=== PATIENT | male | born 1990 | race Caucasian/White ===

== ENCOUNTER 2017-09-18 03:09 | Emergency (ER) | payer BC, OTHER ==
--- NOTE | 2017-09-18 03:58 | EDPHYS ---
Physician Documentation [facility] Name: Mikhail Mcfarlane III Age: 27 yrs Sex: Male : 1990 Arrival Date: 09/18/2017 Time: 03:10 Bed 13 Private MD: ED Physician Mukul Elena HPI: 09/18 03:38 This 27 yrs old Male presents to ER via Ambulatory with complaints of Arm sangeeta Pain - R. 03:38 The patient or guardian complains of decreased range of motion, pain. The complaints sangeeta affect the anterior aspect of right shoulder and posterior aspect of right shoulder. Context: The problem was sustained at home. Onset: The symptoms/episode began/occurred 2 day(s) ago. Treatment prior to arrival includes: no previous treatment. Modifying factors: The symptoms are alleviated by remaining still, the symptoms are aggravated by movement, lifting weight. Associated signs and symptoms: The patient has no apparent associated signs or symptoms. Severity of symptoms: At their worst the symptoms were mild, moderate, in the emergency department the symptoms are unchanged. The patient has not experienced similar symptoms in the past. Historical: - Allergies: 03:23 No Known Allergies; tl1 - Home Meds: 03:23 None [Active]; tl1 - PMHx: 03:23 None; tl1 - PSHx: 03:23 rhinoplasty; tl1 - Immunization history:: Adult Immunizations up to date. - Social history:: Smoking status: Patient/guardian denies using tobacco, the patient reports quitting approximately 2 years ago, Patient uses alcohol, occasionally. - Family history:: not pertinent. ROS: 03:38 Constitutional: Negative for fever, chills, and weight loss, Eyes: Negative for injury, sangeeta pain, redness, and discharge, ENT: Negative for injury, pain, and discharge, Neck: Negative for injury, pain, and swelling, Cardiovascular: Negative for chest pain, palpitations, and edema, Respiratory: Negative for shortness of breath, cough, wheezing, and pleuritic chest pain, Abdomen/GI: Negative for abdominal pain, nausea, vomiting, diarrhea, and constipation, Back: Negative for injury and pain, : Negative for injury, bleeding, discharge, and swelling, Skin: Negative for injury, rash, and discoloration, Neuro: Negative for headache, weakness, numbness, tingling, and seizure, Psych: Negative for depression, anxiety, suicide ideation, homicidal ideation, and hallucinations, Allergy/Immunology: Negative for hives, rash, and allergies, Endocrine: Negative for neck swelling, polydipsia, polyuria, polyphagia, and marked weight changes, Hematologic/Lymphatic: Negative for swollen nodes, abnormal bleeding, and unusual bruising. 03:38 MS/extremity: Positive for decreased range of motion, pain, tenderness, of the anterior aspect of right shoulder and posterior aspect of right shoulder. Exam: 03:38 Constitutional: This is a well developed, well nourished patient who is awake, alert, sangeeta and in no acute distress. Head/Face: Normocephalic, atraumatic. Eyes: Pupils equal round and reactive to light, extra-ocular motions intact. Lids and lashes normal. Conjunctiva and sclera are non-icteric and not injected. Cornea within normal limits. Periorbital areas with no swelling, redness, or edema. ENT: Nares patent. No nasal discharge, no septal abnormalities noted. Tympanic membranes are normal and external auditory canals are clear. Oropharynx with no redness, swelling, or masses, exudates, or evidence of obstruction, uvula midline. Mucous membranes moist. Neck: Trachea midline, no thyromegaly or masses palpated, and no cervical lymphadenopathy. Supple, full range of motion without nuchal rigidity, or vertebral point tenderness. No Meningismus. Chest/axilla: Normal chest wall appearance and motion. Nontender with no deformity. No lesions are appreciated. Cardiovascular: Regular rate and rhythm with a normal S1 and S2. No gallops, murmurs, or rubs. Normal PMI, no JVD. No pulse deficits. Respiratory: Lungs have equal breath sounds bilaterally, clear to auscultation and percussion. No rales, rhonchi or wheezes noted. No increased work of breathing, no retractions or nasal flaring. Abdomen/GI: Soft, non-tender, with normal bowel sounds. No distension or tympany. No guarding or rebound. No evidence of tenderness throughout. Back: No spinal tenderness. No costovertebral tenderness. Full range of motion. Male : Normal genitalia with no discharge or lesions. Skin: Warm, dry with normal turgor. Normal color with no rashes, no lesions, and no evidence of cellulitis. Neuro: Awake and alert, GCS 15, oriented to person, place, time, and situation. Cranial nerves II-XII grossly intact. Motor strength 5/5 in all extremities. Sensory grossly intact. Cerebellar exam normal. Normal gait. Psych: Awake, alert, with orientation to person, place and time. Behavior, mood, and affect are within normal limits. 03:38 Musculoskeletal/extremity: Extremities: noted in the anterior aspect of right shoulder and posterior aspect of right shoulder: decreased ROM, pain. Vital Signs: 03:21 BP 142 / 94; Pulse 79; Resp 16; Temp 98.4; Pulse Ox 100% ; Weight 113.4 kg; Height 5 tl1 ft. 11 in. (180.34 cm); Pain 8/10; 03:21 Body Mass Index 34.87 (113.40 kg, 180.34 cm) tl1 MDM: 03:37 Patient medically screened. [facility] 03:40 Data reviewed: vital signs, nurses notes, radiologic studies, plain films. [facility] 09/18 03:38 Order name: Shoulder Right (2 View) XRAY [facility] 09/18 03:38 Order name: Sling; Complete Time: 03:50 [facility] 09/18 03:38 Order name: Ice pack; Complete Time: 03:50 [facility] Administered Medications: 03:50 Drug: Motrin 600 mg Route: PO; bs1 04:09 Follow up: Response: Pain is unchanged, physician notified bs1 04:09 Drug: [place] 10 mg-325 mg 1 tabs Route: PO; bs1 04:10 Follow up: Response: No adverse reaction bs1 Disposition: 09/18/17 03:58 Discharged to Home. Impression: Strain of muscle(s) and tendon(s) of the rotator cuff of right shoulder. - Condition is Stable. - Discharge Instructions: Shoulder Pain, Shoulder Pain, [id number], Shoulder Sprain. - Prescriptions for Ibuprofen 600 mg Oral Tablet - take 1 tablet by ORAL route every 8 hours As needed take with food; 21 tablet. Tylenol- Codeine #3 300-30 mg Oral Tablet - take 2 tablets by ORAL route every 6 hours As needed; 26 tablet. - Medication Reconciliation Form, Thank You Letter, Antibiotic Education, Prescription Opioid Use form. - Follow up: Private Physician; When: 2 - 3 days; Reason: Recheck today's complaints, Continuance of care, Re-evaluation by your physician. Follow up: Dr. Duong Monique; When: 2 - 3 days; Reason: Recheck today's complaints, Re-evaluation by your physician. - Problem is new. - Symptoms have improved. Signatures: Dispatcher [employer] Mukul Monreal, Chelita Cortes MD, cha, RN RN tl1 Jaki Nazario RN RN bs1
--- NOTE | 2017-09-18 03:58 | ER ---
Nurse's Notes [facility] Name: Mikhail Mcfarlane III Age: 27 yrs Sex: Male : 1990 Arrival Date: 09/18/2017 Time: 03:10 Bed 13 Private MD: Diagnosis: Strain of muscle(s) and tendon(s) of the rotator cuff of right shoulder Presentation: 09/18 03:20 Presenting complaint: Patient states: I just started working out yesterday and at about tl1 midnight my right arm started hurting. I hurts in my shoulder and down my upper arm. Transition of care: patient was not received from another setting of care. Onset of symptoms was September 18, 2017. Care prior to arrival: None. 03:20 Method Of Arrival: Ambulatory tl1 03:20 Acuity: LEONARDO 4 tl1 Historical: - Allergies: 03:23 No Known Allergies; tl1 - Home Meds: 03:23 None [Active]; tl1 - PMHx: 03:23 None; tl1 - PSHx: 03:23 rhinoplasty; tl1 - Immunization history:: Adult Immunizations up to date. - Social history:: Smoking status: Patient/guardian denies using tobacco, the patient reports quitting approximately 2 years ago, Patient uses alcohol, occasionally. - Family history:: not pertinent. Screenin:52 Abuse screen: Denies threats or abuse. Denies injuries from another. Nutritional bs1 screening: No deficits noted. Tuberculosis screening: No symptoms or risk factors identified. Fall Risk None identified. Assessment: 03:50 General: Appears in no apparent distress. uncomfortable, Behavior is cooperative, bs1 appropriate for age. Pain: Complains of pain in right arm, right shoulder. Neuro: No deficits noted. Level of Consciousness is awake, alert, obeys commands, Oriented to person, place, time, situation, Appropriate for age Cooler Conveyor Loader are equal bilaterally Moves all extremities. Cardiovascular: Heart tones S1 S2 present Capillary refill < 3 seconds Patient's skin is warm and dry. Respiratory: Airway is patent Trachea midline Respiratory effort is even, unlabored, Respiratory pattern is regular, symmetrical, Breath sounds are clear bilaterally. GI: No deficits noted. No signs and/or symptoms were reported involving the gastrointestinal system. : No deficits noted. No signs and/or symptoms were reported regarding the genitourinary system. EENT: No deficits noted. No signs and/or symptoms were reported regarding the EENT system. Derm: No deficits noted. No signs and/or symptoms reported regarding the dermatologic system. Musculoskeletal: Circulation, motion, and sensation intact. Capillary refill < 3 seconds, Range of motion: limited in right arm. Vital Signs: 03:21 BP 142 / 94; Pulse 79; Resp 16; Temp 98.4; Pulse Ox 100% ; Weight 113.4 kg; Height 5 tl1 ft. 11 in. (180.34 cm); Pain 8/10; 03:21 Body Mass Index 34.87 (113.40 kg, 180.34 cm) tl1 ED Course: 03:10 Patient arrived in ED. ds1 03:21 Triage completed. tl1 03:23 Arm band placed on right wrist. tl1 03:37 Mukul Elena MD is Attending Physician. sangeeta 03:45 Sling applied to right arm. bs1 03:50 Jaki Nazario RN is Primary Nurse. bs1 03:51 X-ray completed. Portable x-ray completed in exam room. Patient tolerated procedure kw well. 03:52 Patient has correct armband on for positive identification. Bed in low position. Call bs1 light in reach. Side rails up X 1. 03:58 Duong Monique MD is Referral Physician. sangeeta 04:10 No provider procedures requiring assistance completed. Patient did not have IV access bs1 during this emergency room visit. Administered Medications: 03:50 Drug: Motrin 600 mg Route: PO; bs1 04:09 Follow up: Response: Pain is unchanged, physician notified bs1 04:09 Drug: [place] 10 mg-325 mg 1 tabs Route: PO; bs1 04:10 Follow up: Response: No adverse reaction bs1 Outcome: 03:58 Discharge ordered by . sangeeta 04:10 Discharged to home ambulatory, with sling/Ice pack bs1 04:10 Condition: stable 04:10 Discharge instructions given to patient, Instructed on discharge instructions, follow up and referral plans. medication usage, Demonstrated understanding of instructions, follow-up care, medications, Prescriptions given X 2. 04:12 Patient left the ED. bs1 Signatures: Mukul Elena MD MD cha Sanford, Demi ds1 Bruna Sanders Tonya, RN RN tl1 Jaki Nazario, RN RN bs1
[2017-09-18] MEDS ORDERED: IBUPROFEN 200 MG TAB PO ONE (04:02)
[2017-09-18] MEDS ORDERED: HYDROCODONE/APAP 10/325 TAB ONE (04:27)
--- NOTE | 2017-09-18 09:35 | RAD REPORT ---
EXAM DESCRIPTION: RAD - Shoulder Right 2 View - 09/18/2017 3:53 am CLINICAL HISTORY: Right shoulder pain FINDINGS: No fracture or dislocation is seen. No bone or joint abnormality is seen
== END 2017-09-18 04:12 | disposition home or self-care (01) ==
LOC: ER 03:09
DX: S46.011A Strain of muscle(s) and tendon(s) of the rotator cuff of right shoulder, initial encounter (principal); X50.0XXA Overexertion from strenuous movement or load, initial encounter; Y92.009 Unspecified place in unspecified non-institutional (private) residence as the place of occurrence of the external cause; Z87.891 Personal history of nicotine dependence
CPT/HCPCS: 99283

== ENCOUNTER 2017-09-28 17:17 | Emergency (ER) | payer OTHER ==
[2017-09-28 17:55] LABS: Absolute Lymphocytes (CBC) 2.5 K/uL (0.7-4.9); Absolute Monocytes 0.9 K/uL (0.1-1.3); Absolute Neutrophil 6.2 K/uL (1.8-8.0); Basophils % 0.6 % (0-1.3); Hematocrit 44.6 % (39.6-49.0); Lymphocytes % 25.2 % (15.3-44.8); MCH 29.9 pg (27.0-35.0); MCV 88.6 fL (80-100); RBC Red Blood Cell Count 5.03 M/uL (4.33-5.43)
[2017-09-28 18:00] LABS: Bicarbonate 29 mEq/L (21-31); Glucose Level 111 mg/dL (65-120); Potassium 4.2 mEq/L (3.6-5.0); Sodium Level 140 mEq/L (135-145)
[2017-09-28 18:01] LABS: BUN Blood Urea Nitrogen 17 mg/dL (6-20)
--- NOTE | 2017-09-28 18:11 | RAD REPORT ---
EXAM DESCRIPTION: RAD - Chest Single View - 09/28/2017 6:04 pm CLINICAL HISTORY: Chest pain. COMPARISON: 11/17/2010 FINDINGS: Portable technique limits examination quality. The lungs are grossly clear. The heart is normal in size. No displaced fractures. IMPRESSION: No acute intrathoracic process suspected.
--- NOTE | 2017-09-28 18:20 | EDPHYS ---
Physician Documentation [facility] Name: Mikhail Mcfarlane III Age: 27 yrs Sex: Male : 1990 Arrival Date: 09/28/2017 Time: 17:20 Bed 13 Private MD: Blaze Alba ED Physician Richard Smith HPI: 09/28 18:14 This 27 yrs old Male presents to ER via Ambulatory with complaints of pm1 Palpitations. 18:14 The patient presents with a history of heart racing. Context: The symptoms occur at pm1 rest, while eating breakfast. Onset: The symptoms/episode began/occurred yesterday. Duration: The patient or guardian reports a single episode, that is now resolved, that lasted 30 minute(s). Modifying factors: The symptoms are aggravated by nothing. The symptoms are alleviated by nothing. Associated signs and symptoms: Pertinent negatives: chest pain, lightheadedness, nausea, SOB, vomiting, Dizziness. Severity of symptoms: in the emergency department the symptoms have resolved Pain is currently a 0 / 10. The patient has not experienced similar symptoms in the past. Patient reports that he had a night of drinking alcohol prior to the morning that he had palpitations. Historical: - Allergies: 17:24 No Known Allergies; la1 - PMHx: 17:24 None; la1 - Immunization history:: Adult Immunizations up to date. - Social history:: Smoking status: Patient uses tobacco products. ROS: 18:15 Constitutional: Negative for fever, chills, and weight loss, Eyes: Negative for injury, pm1 pain, redness, and discharge, ENT: Negative for injury, pain, and discharge, Neck: Negative for injury, pain, and swelling. 18:15 Respiratory: Negative for shortness of breath, cough, wheezing, and pleuritic chest pain, Abdomen/GI: Negative for abdominal pain, nausea, vomiting, diarrhea, and constipation, Back: Negative for injury and pain, : Negative for injury, bleeding, discharge, and swelling, MS/Extremity: Negative for injury and deformity, Skin: Negative for injury, rash, and discoloration. 18:15 Cardiovascular: Positive for palpitations, Negative for chest pain, edema, orthopnea. 18:15 Neuro: Positive for leg weakness when he felt palpitations, Negative for dizziness, headache, loss of consciousness, numbness, syncope, near syncope, tingling. 18:15 Psych: Positive for anxiety. Exam: 18:15 Constitutional: This is a well developed, well nourished patient who is awake, alert, pm1 and in no acute distress. Head/Face: Normocephalic, atraumatic. Eyes: Pupils equal round and reactive to light, extra-ocular motions intact. Lids and lashes normal. Conjunctiva and sclera are non-icteric and not injected. Cornea within normal limits. Periorbital areas with no swelling, redness, or edema. ENT: Nares patent. No nasal discharge, no septal abnormalities noted. Tympanic membranes are normal and external auditory canals are clear. Oropharynx with no redness, swelling, or masses, exudates, or evidence of obstruction, uvula midline. Mucous membranes moist. Neck: Trachea midline, no thyromegaly or masses palpated, and no cervical lymphadenopathy. Supple, full range of motion without nuchal rigidity, or vertebral point tenderness. No Meningismus. Chest/axilla: Normal chest wall appearance and motion. Nontender with no deformity. No lesions are appreciated. Cardiovascular: Regular rate and rhythm with a normal S1 and S2. No gallops, murmurs, or rubs. Normal PMI, no JVD. No pulse deficits. Respiratory: Lungs have equal breath sounds bilaterally, clear to auscultation and percussion. No rales, rhonchi or wheezes noted. No increased work of breathing, no retractions or nasal flaring. Abdomen/GI: Soft, non-tender, with normal bowel sounds. No distension or tympany. No guarding or rebound. No evidence of tenderness throughout. Back: No spinal tenderness. No costovertebral tenderness. Full range of motion. Skin: Warm, dry with normal turgor. Normal color with no rashes, no lesions, and no evidence of cellulitis. MS/ Extremity: Pulses equal, no cyanosis. Neurovascular intact. Full, normal range of motion. 18:15 Neuro: Orientation: is normal, Mentation: is normal, Motor: is normal, moves all fours, strength is normal, Gait: is steady, at a normal pace, without difficulty. Vital Signs: 17:24 BP 142 / 91; Pulse 92; Resp 16; Temp 97.1; Pulse Ox 100% on R/A; Weight 113.4 kg; la1 Height 5 ft. 11 in. (180.34 cm); 18:08 BP 131 / 82; Pulse 84; Resp 16; Pulse Ox 96% on R/A; Pain 0/10; em 17:24 Body Mass Index 34.87 (113.40 kg, 180.34 cm) la1 MDM: 17:27 Patient medically screened. pm1 18:18 Data reviewed: vital signs. Data interpreted: Pulse oximetry: on room air is 100 %. pm1 Interpretation: normal. Counseling: I had a detailed discussion with the patient and/or guardian regarding: the historical points, exam findings, and any diagnostic results supporting the discharge/admit diagnosis, lab results, radiology results, the need for outpatient follow up, to return to the emergency department if symptoms worsen or persist or if there are any questions or concerns that arise at home. 09/28 17:34 Order name: CBC with Diff; Complete Time: 17:59 pm1 09/28 17:34 Order name: BMP; Complete Time: 18:03 pm1 09/28 17:34 Order name: EKG; Complete Time: 17:34 pm1 09/28 17:34 Order name: EKG - Nurse/Tech; Complete Time: 17:46 pm1 09/28 17:34 Order name: Chest Single View XRAY; Complete Time: 18:14 pm1 09/28 17:50 Order name: IV Saline Lock; Complete Time: 17:52 pm1 Administered Medications: No medications were administered Disposition: 09/28/17 18:19 Discharged to Home. Impression: Palpitations. - Condition is Stable. - Discharge Instructions: Palpitations. - Medication Reconciliation Form, Thank You Letter form. - Follow up: Emergency Department; When: As needed; Reason: Worsening of condition. Follow up: Blaze Alba MD; When: 2 - 3 days; Reason: Recheck today's complaints, Continuance of care, Re-evaluation by your physician. Follow up: Chip Moe MD; When: 2 - 3 days; Reason: Recheck today's complaints, Continuance of care, Re-evaluation by your physician. - Problem is new. - Symptoms are resolved. Addendum: 09/30/2017 07:26 Co-signature as Attending Physician, Richard Smith MD. g s Signatures: Dispatcher [employer] Damion Mata, COMMUNITY SERVICE AIDE COMMUNITY SERVICE AIDE Xavier Haywood, RN RN la1 Paul Bhardwaj, SAS ANALYST SAS ANALYST pm1 Richard Smith MD MD
--- NOTE | 2017-09-28 18:20 | ER ---
Nurse's Notes [facility] Name: Mikhail Mcfarlane III Age: 27 yrs Sex: Male : 1990 Arrival Date: 09/28/2017 Time: 17:20 Bed 13 Private MD: Blaze Alba Diagnosis: Palpitations Presentation: 09/28 17:22 Presenting complaint: Patient states: Yesterday morning I felt like my heart was la1 racing, my legs felt weak and it lasted for about thirty minutes. Right now I am anxious about it and want to get checked out. Transition of care: patient was not received from another setting of care. Onset of symptoms was September 28, 2017. Care prior to arrival: None. 17:22 Method Of Arrival: Ambulatory la1 17:22 Acuity: LEONARDO 3 la1 Historical: - Allergies: 17:24 No Known Allergies; la1 - PMHx: 17:24 None; la1 - Immunization history:: Adult Immunizations up to date. - Social history:: Smoking status: Patient uses tobacco products. Screenin:46 Abuse screen: Denies threats or abuse. Nutritional screening: No deficits noted. em Tuberculosis screening: No symptoms or risk factors identified. Fall Risk None identified. Assessment: 17:35 General: Appears in no apparent distress. comfortable, Behavior is calm, cooperative. em Pain: Denies pain. Neuro: Level of Consciousness is awake, alert, Oriented to person, place, time, situation, Denies weakness dizziness, numbness headache. Cardiovascular: Reports palpitations, since had a 30 minute episode of palpitations yesterday morning and has been concerned ever since Denies chest pain, Heart tones S1 S2 present Capillary refill < 3 seconds Patient's skin is warm and dry. Rhythm is regular. Respiratory: Airway is patent Respiratory effort is even, unlabored, Respiratory pattern is regular, symmetrical, Breath sounds are clear bilaterally. GI: Abdomen is round. : No signs and/or symptoms were reported regarding the genitourinary system. EENT: No signs and/or symptoms were reported regarding the EENT system. Derm: Skin is intact, Skin is pink, warm \T\ dry. Musculoskeletal: Range of motion: intact in all extremities. 17:59 Reassessment: Patient appears in no apparent distress at this time. I agree with above iw assessment by Damion Freitas LVN. 18:18 Reassessment: Patient appears in no apparent distress at this time. Patient is alert, em oriented x 3, equal unlabored respirations, skin warm/dry/pink. Patient states feeling better. Patient states symptoms have improved. Vital Signs: 17:24 BP 142 / 91; Pulse 92; Resp 16; Temp 97.1; Pulse Ox 100% on R/A; Weight 113.4 kg; la1 Height 5 ft. 11 in. (180.34 cm); 18:08 BP 131 / 82; Pulse 84; Resp 16; Pulse Ox 96% on R/A; Pain 0/10; em 17:24 Body Mass Index 34.87 (113.40 kg, 180.34 cm) la1 ED Course: 17:20 Patient arrived in ED. mr 17:20 Blaze Alba MD is Private Physician. mr 17:24 Triage completed. la1 17:24 Arm band placed on left wrist. la1 17:26 Paul Bhardwaj NP is PHCP. pm1 17:26 Richard Smith MD is Attending Physician. pm1 17:28 Damion Freitas LVN is Primary Nurse. em 17:46 Patient has correct armband on for positive identification. Bed in low position. Call em light in reach. Side rails up X2. 17:46 No provider procedures requiring assistance completed. Initial lab(s) drawn, by me, em sent to lab. Inserted saline lock: 20 gauge in right antecubital area, using aseptic technique. Blood collected. 18:03 X-ray completed. Portable x-ray completed in exam room. Patient tolerated procedure la2 well. 18:04 Chest Single View XRAY In Process Unspecified. EDMS 18:19 Blaze Alba MD is Referral Physician. pm1 18:20 Chip Moe MD is Referral Physician. pm1 18:35 IV discontinued, intact, bleeding controlled, No redness/swelling at site. Pressure em dressing applied. Administered Medications: No medications were administered Outcome: 18:19 Discharge ordered by . pm1 18:35 Discharged to home ambulatory. em 18:35 Condition: good 18:35 Discharge instructions given to patient, Instructed on discharge instructions, follow up and referral plans. Demonstrated understanding of instructions, follow-up care. 18:35 Patient left the ED. em Signatures: Dispatcher [employer] ED Mynor Nicolasa mr Fortino, Damion, LUMBER PILER OPERATOR LUMBER PILER OPERATOR em Shruti Mathias RN RN iw Xavier Joyner RN RN la1 Paul Bhardwaj, [facility] [employer] [employer] pm1 Lo Diez2 Corrections: (The following items were deleted from the chart) 17:50 17:35 Neuro: Level of Consciousness is awake, alert, Oriented to person, place, time, em situation, em
--- NOTE | 2017-09-29 12:45 | EKG ---
Test Date: 2017-09-28 Test Time: 17:38:42 Pinion And Wheel Truer: EMT MEASUREMENT RESULTS: Intervals: Rate: 81 IA: 156 QRSD: 90 QT: 350 QTc: 406 [place]: P: 49 IA: 156 QRS: 22 T: 46 INTERPRETIVE STATEMENTS: Normal sinus rhythm Normal ECG No previous ECG available for comparison Electronically Signed On 09-29-17 12:44:22 CDT by Vasiliy Briceno
== END 2017-09-28 18:35 | disposition home or self-care (01) ==
LOC: ER 17:17
DX: R00.2 Palpitations (principal); F41.9 Anxiety disorder, unspecified; Z72.0 Tobacco use
CPT/HCPCS: 36415; 71045; 80048; 85025; 93005; 99283

== ENCOUNTER 2021-08-15 21:58 | Emergency (ER) | payer OTHER, SELFPAY ==
--- OUTSIDE RECORDS SUMMARY | 2021-08-15 22:02 | XMS REPORT | Continuity of Care Document ---
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 Shonda kes - [facility]oria [facility] Right Right Problem Active [facility] shoulder shoulder [facility] - pain, pain, [facility] un[facility]ifie [facility] Elevated Elevated Diagnosis Active [facility] blood blood [facility] - pressure pressure Memori a reading in reading in l office office Outpati without without ent diagnosis diagnosis Clin ics of of hypertensi hypertensi on on Pharyngiti Pharyngiti Problem Active [facility], s, [facility] - unspecifie unspecifie Me moria d etiology d etiology l [facility] ent Clinics BMI BMI Diagnosis Active [facility] 38.0-38.9, 38.0-38.9, Shonda kes - adult adult [facility]oria [facility] ent Clinics Panic Panic Problem Active [facility] attacks attacks [facility] - [facility] Anxiety Anxiety Diagnosis Active [facility] about about [employer] [employer] [facility] Clinics Obstructiv Obstructiv Diagnosis Active [facility] e sleep e sleep [facility] - apnea apnea [facility] Clinics Allergies, Adverse Reactions, Alerts This patient has no known allergies or adverse reactions. Medications Ordered Filled Start Stop Current Ordering Indication Dosage Frequency Signature Comments Components Source Medication Medication Date Date Medication? Clinician (SIG) Name Name BusPIRone BusPIRone Yes Blaze [address] [facility] HCl HCl 8-23 [facility]th [facility] - [facility] Mem 00 [facility]pat[facility] ent Clinics HydrOXYzine HydrOXYzine 2019-0 Yes Blaze [address] [facility] HCl HCl 6-03 Parth as needed [facility] - 00:[facility]: Mem 00 l Outpati ent Clinics BusPIRone BusPIRone 2019-0 Yes Blaze [address] [facility] HCl HCl 5-24 [facility]th [facility] ent Clinics ibuprofen ibuprofen Yes Blaze not [facility] Parth defined [facility] - [facility] Procedures This patient has no known procedures. Encounters Start End Encounter Admission Attending Care Care Encounter Source Date/Time Date/Time Type Type Clinicians Facility Department ID 2019-02-20 2019-02-20 [facility] [id number] [facility] 13:00[facility]00 13:00:00 [facility] Outpati ent Clinics 2018-12-16 2018-12-16 [facility] [id number] [facility] 08[facility]10:00 08:10:00 [facility] Outpati ent Clinics 2018-12-09 2018-12-09 [facility] [id number] [facility] 11:30:00 11:30:00 [facility] Outpat[facility] ent Clinics 2018-11-20 2018-11-20 [facility] [id number] [facility] 10:31:00 10:31:00 [facility] Outpat[facility] ent Clin[facility] 2018-07-18 2018-07-18 [facility] [id number] [facility] 16:46:00 16:46:00 [facility] Out[facility] ent Clin[facility] 2017-12-13 2017-12-13 [facility] [id number] [facility] 09:30:00 09:30:00 [facility] Out[facility] ent Clinics Results This patient has no known results.
[2021-08-16] LABS: SARS-COV-2 RT PCR NEGATIVE (NEGATIVE)
--- NOTE | 2021-08-16 00:11 | EDPHYS ---
Physician Documentation [facility] Name: Mikhail Mcfarlane III Age: 31 yrs Sex: Male : 1990 Arrival Date: 08/15/2021 Time: 22:02 Bed 9 Private MD: ADRIANA Physician Mukul Elena HPI: 08/16 00:02 This 31 yrs old Male presents to ER via Ambulatory with complaints of Runny Nose. kb 00:02 The patient or guardian reports cough, that is intermittent, described as mild. Onset: kb The symptoms/episode began/occurred yesterday. Severity of symptoms: At their worst the symptoms were moderate, in the emergency department the symptoms are unchanged. Modifying factors: The symptoms are alleviated by nothing, the symptoms are aggravated by nothing. Associated signs and symptoms: Pertinent positives: rhinorrhea, sore throat, Pertinent negatives: chest pain, diarrhea, ear ache, fever, nausea, vomiting. The patient has not experienced similar symptoms in the past. The patient has not recently seen a physician. Historical: - Allergies: 08/15 22:16 No Known Allergies; vc1 - Home Meds: 22:16 sertraline 25 mg oral tab [Active]; lisinopril 20 mg Oral tab [Active]; vc1 - PMHx: 22:16 Hypertensive disorder; Seasonal Allergies; Anxiety; vc1 - PSHx: 22:16 Nose surgery for deviated septum; vc1 - Immunization history:: Adult Immunizations up to date, Client reports receiving the 2nd dose of the Covid vaccine, Flu vaccine is not up to date. It has been more than one year since last vaccine. - Social history:: Smoking status: Reported history of juuling and/or vaping. ROS: 08/16 00:02 Constitutional: Negative for fever, chills, and weight loss. kb ENT: Positive for rhinorrhea, sinus congestion, sore throat. Respiratory: Positive for cough, shortness of breath. All other systems are negative. Exam: 00:02 Constitutional: This is a well developed, well nourished patient who is awake, alert, kb and in no acute distress. Head/Face: Normocephalic, atraumatic. ENT: Moist Mucous membranes Cardiovascular: Regular rate and rhythm with a normal S1 and S2. No gallops, murmurs, or rubs. No pulse deficits. Respiratory: Respirations even and unlabored. No increased work of breathing. Talking in full sentences Skin: Warm, dry with normal turgor. Normal color. MS/ Extremity: Pulses equal, no cyanosis. Neurovascular intact. Full, normal range of motion. Neuro: Awake and alert, GCS 15, oriented to person, place, time, and situation. Moves all extremities. Normal gait. Psych: Awake, alert, with orientation to person, place and time. Behavior, mood, and affect are within normal limits. Vital Signs: 08/15 22:19 BP 139 / 90; Pulse 91; Resp 20; Temp 98.1; Pulse Ox 98% ; Weight 124.74 kg; Height 5 vc1 ft. 11 in. (180.34 cm); Pain 5/10; 23:30 Pulse 78; Resp 16; Pulse Ox 98% on R/A; mk 08/16 00:20 BP 119 / 67; Pulse 84; Resp 18; Temp 97.6; Pulse Ox 98% on R/A; mk 08/15 22:19 Body Mass Index 38.35 (124.74 kg, 180.34 cm) vc1 Oliver Coma Score: 08/15 23:30 Eye Response: spontaneous(4). Verbal Response: oriented(5). Motor Response: obeys mk commands(6). Total: 15. 08/16 00:20 Eye Response: spontaneous(4). Verbal Response: oriented(5). Motor Response: obeys mk commands(6). Total: 15. MDM: 08/15 22:23 Patient medically screened. kb 08/16 00:01 Data reviewed: vital signs, nurses notes. Data interpreted: Pulse oximetry: on room air kb is 98 %. Interpretation: normal. Counseling: I had a detailed discussion with the patient and/or guardian regarding: the historical points, exam findings, and any diagnostic results supporting the discharge/admit diagnosis, lab results, the need for outpatient follow up, a family practitioner, to return to the emergency department if symptoms worsen or persist or if there are any questions or concerns that arise at home. 08/15 22:20 Order name: COVID-19/FLU A+B (Document "Date of Onset" if Symptomatic); Complete Time: kb 00:01 08/15 23:11 Order name: Group A Streptococcus Rapid Sc; Complete Time: 00:10 EDMS 08/16 00:12 Order name: Throat Culture EDMS Administered Medications: No medications were administered Disposition: 07:08 Co-signature as Attending Physician, Mukul Elena MD I agree with the assessment and sangeeta plan of care. Disposition Summary: 08/16/21 00:10 Discharge Ordered Location: Home kb Condition: Stable kb Diagnosis - Acute sinusitis, unspecified kb Followup: kb - With: Emergency Department - When: As needed - Reason: Worsening of condition Followup: kb - With: Private Physician - When: 2 - 3 days - Reason: Recheck today's complaints, Continuance of care, Re-evaluation by your physician Discharge Instructions: - Discharge Summary Sheet kb - Sinusitis, Adult, [id number] kb Forms: - Medication Reconciliation Form kb - Thank You Letter kb - Antibiotic Education kb - Prescription Opioid Use kb Signatures: Dispatcher [employer] EDMS Kate Hernandez, [employer]-C [employer]-Mukul Mendoza MD MD cha Calcote, Vanessa RN RN vc1
--- NOTE | 2021-08-16 00:11 | ER ---
Nurse's Notes [facility] Name: Mikhail Mcfarlane III Age: 31 yrs Sex: Male : 1990 Arrival Date: 08/15/2021 Time: 22:02 Bed 9 Private MD: Diagnosis: Acute sinusitis, unspecified Presentation: 08/15 22:14 Chief complaint: Patient states: I came in from out of town last night, I got out of my vc1 truck and my sinuses went crazy. I went to work and had lots of drainage. I've been coughing every time I take a breath. I laid down to go to sleep and put my cpap on and I felt like I couldn't breath. Coronavirus screen: Vaccine status: Patient reports receiving the 2nd dose of the covid vaccine. Moderna congestion, cough unrelated to allergies, difficulty breathing, runny nose, shortness of breath, Client presents with at least one sign or symptom that may indicate coronavirus-19. Standard/surgical mask placed on the client. Provider contacted for isolation considerations. Ebola Screen: No symptoms or risks identified at this time. Onset of symptoms was August 14, 2021. 22:14 Method Of Arrival: Ambulatory vc1 22:14 Acuity: LEONARDO 4 vc1 22:52 Initial Sepsis Screen: Does the patient meet any 2 criteria? No. Patient's initial mk sepsis screen is negative. Does the patient have a suspected source of infection? No. Patient's initial sepsis screen is negative. Risk Assessment: Do you want to hurt yourself or someone else? Patient reports no desire to harm self or others. Triage Assessment: 22:16 General: Appears in no apparent distress. uncomfortable, ill, Behavior is calm, vc1 cooperative, appropriate for age. Pain: Complains of pain in throat. Respiratory: Reports shortness of breath cough that is Airway is patent Respiratory effort is even, unlabored, Respiratory pattern is regular, symmetrical. GI: No deficits noted. : No deficits noted. Historical: - Allergies: 22:16 No Known Allergies; vc1 - Home Meds: 22:16 sertraline 25 mg oral tab [Active]; lisinopril 20 mg Oral tab [Active]; vc1 - PMHx: 22:16 Hypertensive disorder; Seasonal Allergies; Anxiety; vc1 - PSHx: 22:16 Nose surgery for deviated septum; vc1 - Immunization history:: Adult Immunizations up to date, Client reports receiving the 2nd dose of the Covid vaccine, Flu vaccine is not up to date. It has been more than one year since last vaccine. - Social history:: Smoking status: Reported history of juuling and/or vaping. Screenin:52 Abuse screen: Denies threats or abuse. Nutritional screening: No deficits noted. mk Tuberculosis screening: No symptoms or risk factors identified. Fall Risk No fall in past 12 months (0 pts). No secondary diagnosis (0 pts). No IV (0 pts). Ambulatory Aid- None/Bed Rest/Nurse Assist (0 pts). Gait- Normal/Bed Rest/Wheelchair (0 pts) Mental Status- Oriented to own ability (0 pts). Total Granger Fall Scale indicates No Risk (0-24 pts). Assessment: 22:30 General: Appears in no apparent distress. Behavior is cooperative. Pain: Denies pain. mk Neuro: Level of Consciousness is awake, alert, obeys commands, Oriented to person, place, time, situation, Moves all extremities. Gait is steady, Speech is normal. Cardiovascular: Heart tones S1 S2 present Capillary refill < 3 seconds in bilateral fingers toes Clubbing of nail beds JVD is absent Patient's skin is warm and dry. Pulses are 3+ in right radial artery, right dorsalis pedis artery, left radial artery and left dorsalis pedis artery. Respiratory: Airway is patent Trachea midline Respiratory effort is even, unlabored, Respiratory pattern is regular, symmetrical, Breath sounds are clear. GI: Abdomen is flat, non-distended, Bowel sounds present X 4 quads. Abd is soft and non tender X 4 quads. : No signs and/or symptoms were reported regarding the genitourinary system. Derm: Skin is intact, is healthy with good turgor, Skin is dry, Skin is pink, warm \\T\\ dry. Skin temperature is warm. Musculoskeletal: Circulation, motion, and sensation intact. Capillary refill < 3 seconds, in bilateral fingers. toes. Range of motion: intact in all extremities. 23:30 Reassessment: No changes from previously documented assessment. Patient and/or family mk updated on plan of care and expected duration. Pain level reassessed. Patient is alert, oriented x 3, equal unlabored respirations, skin warm/dry/pink. 08/16 00:38 Reassessment: No changes from previously documented assessment. Patient and/or family mk updated on plan of care and expected duration. Pain level reassessed. Patient is alert, oriented x 3, equal unlabored respirations, skin warm/dry/pink. Vital Signs: 08/15 22:19 BP 139 / 90; Pulse 91; Resp 20; Temp 98.1; Pulse Ox 98% ; Weight 124.74 kg; Height 5 vc1 ft. 11 in. (180.34 cm); Pain 5/10; 23:30 Pulse 78; Resp 16; Pulse Ox 98% on R/A; mk 08/16 00:20 BP 119 / 67; Pulse 84; Resp 18; Temp 97.6; Pulse Ox 98% on R/A; mk 08/15 22:19 Body Mass Index 38.35 (124.74 kg, 180.34 cm) vc1 Oliver Coma Score: 08/15 23:30 Eye Response: spontaneous(4). Verbal Response: oriented(5). Motor Response: obeys commands(6). Total: 15. 08/16 00:20 Eye Response: spontaneous(4). Verbal Response: oriented(5). Motor Response: obeys commands(6). Total: 15. ED Course: 08/15 22:02 Patient arrived in ED. ag3 22:11 Kate Hernandez FNP-C [facility] kb 22:11 Mukul Elena MD is Attending Physician. kb 22:16 Triage completed. vc1 22:16 Arm band placed on right wrist. vc1 22:27 Yenni Whitman, RN is Primary Nurse. mk 22:49 COVID-19/FLU A+B (Document "Date of Onset" if Symptomatic) Sent. mk 22:52 Patient has correct armband on for positive identification. Allergy band placed. Bed in mk low position. Call light in reach. Side rails up X 1. 22:52 No provider procedures requiring assistance completed. mk 23:29 Group A Streptococcus Rapid Sc Sent. mk 23:29 Strep Sent. mk 23:29 COVID-19/FLU A+B (Document "Date of Onset" if Symptomatic) Sent. 08/16 00:39 Patient did not have IV access during this emergency room visit. nabeel Administered Medications: No medications were administered Outcome: 00:10 Discharge ordered by . cassy 00:39 Discharged to home nabeel 00:39 Condition: stable 00:39 Discharge instructions given to patient, Instructed on discharge instructions, follow up and referral plans. Demonstrated understanding of instructions, follow-up care. 00:39 Patient left the ED. nabeel Signatures: Kate Hernandez, PLACEMENT MANAGER-C PLACEMENT MANAGER-CkFrancisca Neal ag3 Yenni Whitman, RN RN Rachelle Dietz RN RN vc1
[2021-08-16 01:59] VITALS: O2SAT 98
[2021-08-16 02:02] VITALS: BP 119/67; TEMP 97.6
== END 2021-08-16 00:39 | disposition home or self-care (01) ==
LOC: ER 21:58
DX: J01.90 Acute sinusitis, unspecified (principal); Z20.822 Contact with and (suspected) exposure to COVID-19; I10 Essential (primary) hypertension; F41.9 Anxiety disorder, unspecified
CPT/HCPCS: 0240U; 87070; 87081; 99283